=== PATIENT | male | born 1985 | race Hispanic/Latino ===

== ENCOUNTER 2021-10-15 02:44 | Emergency (ER) | payer SELFPAY ==
[2021-10-15] MEDS ORDERED: LIDOCAINE 1% MPF 30 ML VIAL ONE (03:05)
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
[2021-10-15] MEDS ORDERED: BACI/NEOMYCIN/POLY OINT 15GM TOP ONE (03:26)
[2021-10-15] MEDS ORDERED: TETANUS & DIPHTHERIA TOX,ADULT 0.5 ML VIAL ONE (03:26)
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
[2021-10-15 08:37] VITALS: BP 148/97; TEMP 99; O2SAT 98
== END 2021-10-15 03:50 | disposition home or self-care (01) ==
LOC: ER 02:44
PROC: 0JQF0ZZ Repair Left Upper Arm Subcutaneous Tissue and Fascia, Open Approach (ICD-10-PCS; principal; 2021-10-15)
DX: S41.112A Laceration without foreign body of left upper arm, initial encounter (principal); V89.2XXA Person injured in unspecified motor-vehicle accident, traffic, initial encounter
CPT/HCPCS: 90471; 90714; 99283